=== PATIENT | female | born 1995 | race Caucasian/White ===

== ENCOUNTER 2021-11-08 15:57 | Inpatient (IN) | payer OTHER, SELFPAY ==
--- NOTE | 2021-11-08 | ECG_ITS ---
Test Reason : med clearance Blood Pressure : / mmHG Vent. Rate : 073 BPM Atrial Rate : 073 BPM P-R Int : 140 ms QRS Dur : 076 ms QT Int : 390 ms P-R-T Axes : 072 094 058 degrees QTc Int : 429 ms Normal sinus rhythm Rightward axis Nonspecific ST abnormality Borderline ECG No previous ECGs available Referred By: Angelita Monahan Electronically Signed By:WENDY TIAN
[2021-11-08 16:15] VITALS: BP 115/64; PULSE 97; RESP 15; TEMP 36.7; O2SAT 98
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
[2021-11-08 21:43] VITALS: BP 100/63; PULSE 99; TEMP 36.6; O2SAT 99
[2021-11-08] MEDS: OLANZapine ODT 10 MG TAB.RAPDIS TRANSLINGU (21:45)
[2021-11-08] MEDS: traZODone HCL 50 MG TABLET PO (21:45)
[2021-11-08] MEDS: hydrOXYzine HCL 50 MG TABLET PO (21:45)
[2021-11-09 09:17] LABS: Estimated Average Glucose 94 mg/dL; Hemoglobin A1c % 4.9 %
[2021-11-09 09:32] LABS: Alanine Aminotransferase 27 U/L (0-31); Albumin Level 4.5 g/dL (3.5-5.0); Alkaline Phosphatase 70 U/L (39-117); Anion Gap 12 (12-20); Aspartate Amino Transferase 22 U/L (5-31); Bilirubin Total 0.3 mg/dL (0.0-1.0); Blood Urea Nitrogen 21 mg/dL (9-16); Carbon Dioxide 29 mmol/L (22-29); Chloride 105 mmol/L (96-108); Cholesterol 157 mg/dL; Estimated Glomerular Filt Rate > 60; Glucose Fasting 87 mg/dL (60-99); HDL Cholesterol 39 mg/dL; LDL Cholesterol Calculated 103 mg/dl; Potassium 4.6 mmol/L (3.3-5.1); Sodium 141 mmol/L (135-145); Total Protein 7.3 g/dL (6.5-8.0); Triglycerides 78 mg/dL
[2021-11-09 09:54] LABS: Thyroid Stimulating Hormone 1.28 uIU/mL (0.32-4.0)
[2021-11-09 10:19] LABS: Folate 17.6 ng/mL (> or = 4.0); Vitamin B12 507 pg/mL (200-900)
[2021-11-09] MEDS: carBAMazepine ER 200 MG TAB.ER.12H 400 MG PO ×2 (11:06→20:52)
[2021-11-09] MEDS: QUEtiapine Fumarate 50 MG TABLET PO ×2 (11:06→12:46)
[2021-11-09] MEDS: Escitalopram Oxalate 10 MG TABLET PO (11:24)
[2021-11-09] MEDS: LORazepam 1 MG TABLET 2 MG PO (12:54)
--- NOTE | 2021-11-09 12:55 | PC.NURSE ---
Maintenance staff went to patient's room to fix her door. Reportedly, the maintenance staff went to the patient's room, saw that the patient was in there, and said she's not supposed to be in here. Maintenance staff tried to clarify with M3 staff about whether pt needed to leave her room, but the only M3 staff nearby was a PC who was already with a 1:1 patient. Pt became very agitated and started yelling/screaming. She started throwing her hands at maintenance staff, swearing at him, and pushed her hand against his face. Staff had attempted to redirect her. Pt said don't talk to me like that you racist piece of shit and tried lunging at him multiple times. Staff eventually was able to redirect pt to sit down in the kitchen area. This RN asked if she wanted some medication to help her relax and patient agreed. Pt willingly took Seroquel 50mg and Ativan 2mg PO at 1246. Pt was visibly calmer and was watching TV in the kitchen area, eventually fell asleep.
--- NOTE | 2021-11-09 13:29 | P.PNPSI_ITS ---
Subjective Subjective Date of Service: 11/09/21 Reason For Visit: bipolar 1 disorder other specified trauma Interim History: pt found lying in bed, awake. came to interview room. quiet at first, but once started talking became pressured and agitated. impatient and unreasonable. conversation focused on medications, as pt stated her medications were not correct and was upset about it. agreed to restart tegretol and start seroquel in place of risperidone. she reports having taken her brother's seroquel once and having had a good result. will use seroquel instead of trazodone as well, for sleep. educated pt regarding the use of SSRIs in persons with bipolar disorder, and that unopposed use is not recommended but that as long as she continued to take tegretol, her taking citalopram (or lexapro here) would be OK. pt expressed agreement with this plan for now. per staff, no notable events or behaviors overnight other than general irritability and refusal to cooperative with admissions assessments. Mental Status Exam Mental Status Exam Narrative: appropriately dressed and adequately groomed. very thin. cooperative with interview. PMA of frequent repositioning, moving forward and backward in her seat as she expressed her irritation. speech pressured. thoughts digressive and largely logical with some extreme positions being taken. affect constricted, hyper-intense, labile. mood irritable. no SI/HI/AVH expressed. Diagnostics Vital Signs (24Hr): Vital Signs - 24 hr 11/08/21 16:15 11/08/21 21:43 Temperature 98.0 F 97.8 F Pulse Rate 97 99 Respiratory Rate 15 Blood Pressure 115/64 100/63 Pulse Oximetry 98 99 Labs Results: 11/09/21 08:42 Labs: Laboratory Results - last 48 hr 11/09/21 11/09/21 11/09/21 08:42 08:42 08:42 Sodium 141 Potassium 4.6 Chloride 105 Carbon Dioxide 29 Anion Gap 12 BUN 21 H Creatinine 0.76 Estim Creat Clear Calc TNP Estimated GFR > 60 Fasting Glucose 87 Estimat Average Glucose 94 Hemoglobin A1c % 4.9 Calcium 10.0 Total Bilirubin 0.3 AST 22 ALT 27 Alkaline Phosphatase 70 Total Protein 7.3 Albumin 4.5 Triglycerides 78 Cholesterol 157 LDL Cholesterol, Calc 103 HDL Cholesterol 39 Vitamin B12 507 Folate 17.6 TSH 1.28 Medications Medications Current Medications Acetaminophen (Acetaminophen 325 Mg Tablet) 650 mg PO Q6H PRN PRN Reason: Headache/Pain Mild Scale (1-3) Al Hydroxide/Mg Hydroxide (Magnesium Hydrox/Alum Hydrox 30 Ml Oral.Susp) 30 ml PO Q6H PRN PRN Reason: Heartburn/Nausea Carbamazepine (Carbamazepine Er 200 Mg Tab.Er.12h) 400 mg PO BID [facility] Last Admin: 11/09/21 11:06 Dose: 400 mg Documented by: Escitalopram Oxalate (Escitalopram Oxalate 10 Mg Tablet) 10 mg PO DAILY [facility] Last Admin: 11/09/21 11:24 Dose: 10 mg Documented by: Hydroxyzine HCl (Hydroxyzine Hcl 50 Mg Tablet) 50 mg PO Q6H PRN PRN Reason: Anxiety Last Admin: 11/08/21 21:45 Dose: 50 mg Documented by: Magnesium Hydroxide (Milk Of Magnesia 30 Ml Oral.Susp) 30 ml PO DAILY PRN PRN Reason: Constipation Nicotine (Nicotine 21 Mg Patch.Td24) 21 mg TRANSDERMA DAILY PRN PRN Reason: nicotine cravings Quetiapine Fumarate (Quetiapine Fumarate 50 Mg Tablet) 50 mg PO Q4H PRN PRN Reason: agitation Last Admin: 11/09/21 12:46 Dose: 50 mg Documented by: Quetiapine Fumarate (Quetiapine Fumarate 100 Mg Tablet) 100 mg PO BEDTIME [facility] Quetiapine Fumarate (Quetiapine Fumarate 100 Mg Tablet) 100 mg PO BEDTIME PRN PRN Reason: insomnia Allergies Allergies Allergy/AdvReac Type Severity Reaction Status Date / Time cefepime Allergy Unknown Unknown Verified 11/08/21 16:23 Assessment & Plan Assessment & Plan (1) Bipolar I disorder: Status: Acute Code(s): F31.9 - Bipolar disorder, unspecified (2) Seizure disorder: Status: Acute Code(s): G40.909 - Epilepsy, unspecified, not intractable, without status epilepticus Plan Bipolar Disorder, Seizure Disorder 1) Bipolar Disorder - restart tegretol XR 400 mg PO BID. seroquel PRNs for agitation or insomnia. 2) Sz D/O - tegretol. 3) Dispo - pending inpt stabilization. I spent ___35___ minutes with the patient and/or on the patient floor today, greater than?50% of which was spent counseling/coordinating care. Reason for contiued inpatient stay Substantial Risk for: harm to self, harm to others, inability to function and rapid decompensation
--- NOTE | 2021-11-09 13:50 | HO.HSGERICON ---
History of Present Illness Data of Consult Service Date: 11/09/21 Primary Care Provider: Unknown Physician HPI Reason for consult: h and p 26F admitted To inpatient psychiatry for homicidal ideation. Patient denies any medical history. Denies any chest pain, shortness of breath, fever, chills. Review of Systems Review of Systems: Yes all other systems are reviewed and are negative [facility] Medical History Chronic migraine without aura Low grade glioma of thalamus Family History Mother Fibromyalgia Social History Household Members: Family Housing: House Do you presently have visiting nurse or other home services: No Unable to assess alcohol history related to: Refusing to respond Patient Tobacco Use Status: Never used Tobacco Use of substances other than those prescribed or required for medical reasons: Refusing to respond Substance Use Type: Marijuana Spiritual Healthcare Practices: Patient refused to respond. Christianity Healthcare Practices: Patient refused to respond. Cultural Healthcare Practices: Patient refused to respond. Advance Directives: No Advance Directives Information Provided: No Advance Directives on File: No Do you have thoughts of harming others: None Do you have a plan to hurt others: No Plan Recently lost weight without trying: Unsure How much weight loss: Unsure Nutrition Risks: No Nutritional Risk Patient : No : No Poor oral hygiene: No service: No Sexual orientation: Don't Know Meds Allergies Allergy/AdvReac Type Severity Reaction Status Date / Time cefepime Allergy Unknown Unknown Verified 11/08/21 16:23 Active Medications: Current Medications Acetaminophen (Acetaminophen 325 Mg Tablet) 650 mg PO Q6H PRN PRN Reason: Headache/Pain Mild Scale (1-3) Al Hydroxide/Mg Hydroxide (Magnesium Hydrox/Alum Hydrox 30 Ml Oral.Susp) 30 ml PO Q6H PRN PRN Reason: Heartburn/Nausea Carbamazepine (Carbamazepine Er 200 Mg Tab.Er.12h) 400 mg PO BID [facility] Last Admin: 11/09/21 11:06 Dose: 400 mg Documented by: Escitalopram Oxalate (Escitalopram Oxalate 10 Mg Tablet) 10 mg PO DAILY [facility] Last Admin: 11/09/21 11:24 Dose: 10 mg Documented by: Hydroxyzine HCl (Hydroxyzine Hcl 50 Mg Tablet) 50 mg PO Q6H PRN PRN Reason: Anxiety Last Admin: 11/08/21 21:45 Dose: 50 mg Documented by: Magnesium Hydroxide (Milk Of Magnesia 30 Ml Oral.Susp) 30 ml PO DAILY PRN PRN Reason: Constipation Nicotine (Nicotine 21 Mg Patch.Td24) 21 mg TRANSDERMA DAILY PRN PRN Reason: nicotine cravings Quetiapine Fumarate (Quetiapine Fumarate 50 Mg Tablet) 50 mg PO Q4H PRN PRN Reason: agitation Last Admin: 11/09/21 12:46 Dose: 50 mg Documented by: Quetiapine Fumarate (Quetiapine Fumarate 100 Mg Tablet) 100 mg PO BEDTIME [facility] Quetiapine Fumarate (Quetiapine Fumarate 100 Mg Tablet) 100 mg PO BEDTIME PRN PRN Reason: insomnia Home Medications Medication Instructions Recorded Confirmed Last Taken Type benztropine 0.5 mg tablet 0.5 mg PO BID 11/08/21 11/08/21 Unknown History cholecalciferol (vitamin D3) 25 25 mcg PO DAILY 11/08/21 11/08/21 Unknown History mcg (1,000 unit) tablet (Vitamin D3) hydroxyzine pamoate 50 mg capsule 50 mg PO Q6H PRN 11/08/21 11/08/21 Unknown History lorazepam 0.5 mg tablet 0.5 mg PO BID PRN 11/08/21 11/08/21 Unknown History multivitamin with minerals 11/08/21 Unknown History risperidone 1 mg tablet 1 mg PO BID 11/08/21 11/08/21 Unknown History sertraline 50 mg tablet 50 mg PO DAILY 11/08/21 11/08/21 Unknown History thiamine HCl (vitamin B1) 100 mg 100 mg PO DAILY 11/08/21 11/08/21 Unknown History tablet (Vitamin B-1) trazodone 50 mg tablet 50 mg PO BEDTIME PRN 11/08/21 11/08/21 Unknown History Results Labs CBC and Chem 7: 11/09/21 08:42 Labs: Laboratory Results - last 24 hr 11/09/21 11/09/21 11/09/21 08:42 08:42 08:42 Anion Gap 12 Estim Creat Clear Calc TNP Estimated GFR > 60 Fasting Glucose 87 Estimat Average Glucose 94 Hemoglobin A1c % 4.9 Calcium 10.0 Total Bilirubin 0.3 AST 22 ALT 27 Alkaline Phosphatase 70 Total Protein 7.3 Albumin 4.5 Triglycerides 78 Cholesterol 157 LDL Cholesterol, Calc 103 HDL Cholesterol 39 Vitamin B12 507 Folate 17.6 TSH 1.28 Assessment and Plan (1) Bipolar I disorder: Status: Acute Plan 26F Admitted to inpatient psychiatry Denies any active medical issues Please recall as needed Physical Exam Vital Signs: Last Vital Signs Temp 97.8 F 11/08/21 21:43 Pulse 99 11/08/21 21:43 Resp 15 11/08/21 16:15 BP 100/63 11/08/21 21:43 Pulse Ox 99 11/08/21 21:43 General: AO X 3, no acute distress Resp: CTA bilateral, no accessory muscles used CVS: S1,S2,RRR GI: soft, non tender, non distended Neuro: motor grossly intact, alert Psych: appropriate affect, appropriate insight Neuro Cranial nerves: Yes CN's II-XII intact bilaterally
[2021-11-09 20:10] VITALS: BP 86/52; PULSE 78; RESP 18; TEMP 36.4; O2SAT 97
[2021-11-09] MEDS: QUEtiapine Fumarate 100 MG TABLET PO (20:52)
[2021-11-10 08:33] VITALS: BP 106/56; PULSE 88; RESP 16; TEMP 36.8; O2SAT 98
[2021-11-10] MEDS: carBAMazepine ER 200 MG TAB.ER.12H 400 MG PO ×2 (08:51→21:05)
[2021-11-10] MEDS: Escitalopram Oxalate 10 MG TABLET PO (08:51)
[2021-11-10] MEDS: QUEtiapine Fumarate 50 MG TABLET PO (08:55)
--- NOTE | 2021-11-10 10:59 | PC.NURSE ---
Patient resting comfortably in bed c/o being anxious was given PRN seroquel with morning meds with good effect. Patient is resting comfortably in bed at this time, ate breakfast this am, will continue to monitor.
[2021-11-10] MEDS: hydrOXYzine HCL 50 MG TABLET PO (19:01)
--- NOTE | 2021-11-10 19:32 | HO.PSYCHPN ---
Subjective Subjective Date of Service: 11/10/21 Reason For Visit: bipolar 1 disorder other specified trauma Interim History: pt reports the meds are helping her, making her sleepy. she doesn't mind bcses she hasn't been sleeping much recently, so she feels it is a good thing. some conflict with staff working on door latch in her room as they were not expected, but she feels she is better now. per staff, decreased anxiety. altercation with staff last night, as they entered her room without announcing. got seroquel 50 PRN. med-compliant. pleasant today. Mental Status Exam Mental Status Exam Narrative: appropriately dressed and adequately groomed. very thin. cooperative with interview. no PMA/PMR. speech nml rate, amount, loudness, latency.. thoughts linear and logical. affect constricted, normo-intense, non-labile. no SI/HI/AVH expressed. Diagnostics Vital Signs (24Hr): Vital Signs - 24 hr 11/09/21 20:10 11/10/21 08:33 Temperature 97.6 F 98.3 F Pulse Rate 78 88 Respiratory Rate 18 16 Blood Pressure 86/52 L 106/56 L Pulse Oximetry 97 98 Labs Results: 11/09/21 08:42 Labs: Laboratory Results - last 48 hr 11/09/21 11/09/21 11/09/21 08:42 08:42 08:42 Sodium 141 Potassium 4.6 Chloride 105 Carbon Dioxide 29 Anion Gap 12 BUN 21 H Creatinine 0.76 Estim Creat Clear Calc TNP Estimated GFR > 60 Fasting Glucose 87 Estimat Average Glucose 94 Hemoglobin A1c % 4.9 Calcium 10.0 Total Bilirubin 0.3 AST 22 ALT 27 Alkaline Phosphatase 70 Total Protein 7.3 Albumin 4.5 Triglycerides 78 Cholesterol 157 LDL Cholesterol, Calc 103 HDL Cholesterol 39 Vitamin B12 507 Folate 17.6 TSH 1.28 Medications Medications Current Medications Acetaminophen (Acetaminophen 325 Mg Tablet) 650 mg PO Q6H PRN PRN Reason: Headache/Pain Mild Scale (1-3) Al Hydroxide/Mg Hydroxide (Magnesium Hydrox/Alum Hydrox 30 Ml Oral.Susp) 30 ml PO Q6H PRN PRN Reason: Heartburn/Nausea Carbamazepine (Carbamazepine Er 200 Mg Tab.Er.12h) 400 mg PO BID [facility] Last Admin: 11/10/21 08:51 Dose: 400 mg Documented by: Escitalopram Oxalate (Escitalopram Oxalate 10 Mg Tablet) 10 mg PO DAILY [facility] Last Admin: 11/10/21 08:51 Dose: 10 mg Documented by: Hydroxyzine HCl (Hydroxyzine Hcl 50 Mg Tablet) 50 mg PO Q6H PRN PRN Reason: Anxiety Last Admin: 11/10/21 19:01 Dose: 50 mg Documented by: Magnesium Hydroxide (Milk Of Magnesia 30 Ml Oral.Susp) 30 ml PO DAILY PRN PRN Reason: Constipation Nicotine (Nicotine 21 Mg Patch.Td24) 21 mg TRANSDERMA DAILY PRN PRN Reason: nicotine cravings Quetiapine Fumarate (Quetiapine Fumarate 50 Mg Tablet) 50 mg PO Q4H PRN PRN Reason: agitation Last Admin: 11/10/21 08:55 Dose: 50 mg Documented by: Quetiapine Fumarate (Quetiapine Fumarate 100 Mg Tablet) 100 mg PO BEDTIME [facility] Last Admin: 11/09/21 20:52 Dose: 100 mg Documented by: Quetiapine Fumarate (Quetiapine Fumarate 100 Mg Tablet) 100 mg PO BEDTIME PRN PRN Reason: insomnia Allergies Allergies Allergy/AdvReac Type Severity Reaction Status Date / Time cefepime Allergy Unknown Unknown Verified 11/08/21 16:23 Assessment & Plan Assessment & Plan (1) Bipolar I disorder: Status: Acute Code(s): F31.9 - Bipolar disorder, unspecified (2) Seizure disorder: Status: Acute Code(s): G40.909 - Epilepsy, unspecified, not intractable, without status epilepticus Plan Bipolar Disorder, Seizure Disorder 1) Bipolar Disorder - restarted tegretol XR 400 mg PO BID.? seroquel PRNs for agitation or insomnia. 2) Sz D/O - tegretol. 3) Dispo - pending inpt stabilization. I spent ___20___ minutes with the patient and/or on the patient floor today, greater than?50% of which was spent counseling/coordinating care. Reason for contiued inpatient stay Substantial Risk for: harm to self, inability to function and rapid decompensation
[2021-11-10 20:40] VITALS: BP 105/73; PULSE 100; RESP 18; TEMP 36.3; O2SAT 96
[2021-11-10] MEDS: QUEtiapine Fumarate 100 MG TABLET PO (21:06)
[2021-11-11 09:00] VITALS: BP 112/69; PULSE 120; RESP 16; TEMP 36.3; O2SAT 97
[2021-11-11] MEDS: Escitalopram Oxalate 10 MG TABLET PO (09:49)
[2021-11-11] MEDS: carBAMazepine ER 200 MG TAB.ER.12H 400 MG PO ×2 (09:49→20:36)
[2021-11-11] MEDS: QUEtiapine Fumarate 50 MG TABLET PO (14:31)
--- NOTE | 2021-11-11 17:21 | P.PNPSI_ITS ---
Subjective Subjective Date of Service: 11/11/21 Reason For Visit: bipolar 1 disorder other specified trauma Interim History: pt calm, cooperative. states she is feeling pretty good, but a little depressed. not sure where she will be able to discharge to as she does not feel comfortable returning to her mother's house. pt will discuss with SW tomorrow. per staff, alert, oriented, pleasant, cooperative, slept well. good ADLs. use of profanity with RN at night when getting HS meds. Mental Status Exam Mental Status Exam Narrative: appropriately dressed and adequately groomed. very thin. cooperative with interview. no PMA/PMR. speech nml rate, amount, loudness, latency. thoughts linear and logical. affect constricted, normo-intense, non-labile. no SI/HI/AVH expressed. Diagnostics Vital Signs (24Hr): Vital Signs - 24 hr 11/10/21 20:40 11/11/21 09:00 Temperature 97.4 F 97.4 F Pulse Rate 100 120 H Respiratory Rate 18 16 Blood Pressure 105/73 112/69 Pulse Oximetry 96 97 Labs Results: 11/09/21 08:42 Medications Medications Current Medications Acetaminophen (Acetaminophen 325 Mg Tablet) 650 mg PO Q6H PRN PRN Reason: Headache/Pain Mild Scale (1-3) Al Hydroxide/Mg Hydroxide (Magnesium Hydrox/Alum Hydrox 30 Ml Oral.Susp) 30 ml PO Q6H PRN PRN Reason: Heartburn/Nausea Carbamazepine (Carbamazepine Er 200 Mg Tab.Er.12h) 400 mg PO BID [facility] Last Admin: 11/11/21 09:49 Dose: 400 mg Documented by: Escitalopram Oxalate (Escitalopram Oxalate 10 Mg Tablet) 10 mg PO DAILY [facility] Last Admin: 11/11/21 09:49 Dose: 10 mg Documented by: Hydroxyzine HCl (Hydroxyzine Hcl 50 Mg Tablet) 50 mg PO Q6H PRN PRN Reason: Anxiety Last Admin: 11/10/21 19:01 Dose: 50 mg Documented by: Magnesium Hydroxide (Milk Of Magnesia 30 Ml Oral.Susp) 30 ml PO DAILY PRN PRN Reason: Constipation Nicotine (Nicotine 21 Mg Patch.Td24) 21 mg TRANSDERMA DAILY PRN PRN Reason: nicotine cravings Quetiapine Fumarate (Quetiapine Fumarate 50 Mg Tablet) 50 mg PO Q4H PRN PRN Reason: agitation Last Admin: 11/11/21 14:31 Dose: 50 mg Documented by: Quetiapine Fumarate (Quetiapine Fumarate 100 Mg Tablet) 100 mg PO BEDTIME SONIA Last Admin: 11/10/21 21:06 Dose: 100 mg Documented by: Quetiapine Fumarate (Quetiapine Fumarate 100 Mg Tablet) 100 mg PO BEDTIME PRN PRN Reason: insomnia Allergies Allergies Allergy/AdvReac Type Severity Reaction Status Date / Time cefepime Allergy Unknown Unknown Verified 11/08/21 16:23 Assessment & Plan Assessment & Plan (1) Bipolar I disorder: Status: Acute Code(s): F31.9 - Bipolar disorder, unspecified (2) Seizure disorder: Status: Acute Code(s): G40.909 - Epilepsy, unspecified, not intractable, without status epilepticus Plan Bipolar Disorder, Seizure Disorder 1) Bipolar Disorder - restarted tegretol XR 400 mg PO BID.? seroquel PRNs for agitation or insomnia. 2) Sz D/O - tegretol. 3) Dispo - pending inpt stabilization. I spent ____15__ minutes with the patient and/or on the patient floor today, greater than?50% of which was spent counseling/coordinating care. Reason for contiued inpatient stay Substantial Risk for: harm to self, harm to others, inability to function and rapid decompensation
[2021-11-11 20:30] VITALS: BP 109/66; PULSE 100; RESP 16; TEMP 36.6; O2SAT 97
[2021-11-11] MEDS: QUEtiapine Fumarate 100 MG TABLET PO (20:36)
[2021-11-11 23:52] LABS: COVID-19 Test Negative (Negative)
[2021-11-12] MEDS: Escitalopram Oxalate 10 MG TABLET PO (09:05)
[2021-11-12] MEDS: carBAMazepine ER 200 MG TAB.ER.12H 400 MG PO ×2 (09:05→21:09)
[2021-11-12 09:09] VITALS: BP 104/70; PULSE 102; RESP 17; TEMP 36.8; O2SAT 99
--- NOTE | 2021-11-12 14:14 | HO.PSYCHPN ---
Subjective Subjective Date of Service: 11/12/21 Reason For Visit: bipolar 1 disorder other specified trauma Interim History: pt seen in her room, on contact precautions. she continues calm and cooperative. still feeling relatively well and planning for discharge soon, but dispo options are of large concern. broaches issue with cell phone yesterday, she acknowledges and takes responsibility for her behavior. she says she was looking into aftercare; redirected her to work through on that, to which she agreed. per staff, uncooperative during use of her cell phone, got seroquel 50 mg PRN once yesterday. Mental Status Exam Mental Status Exam Narrative: appropriately dressed and adequately groomed. very thin. cooperative with interview. no PMA/PMR. speech nml rate, amount, loudness, latency. thoughts linear and logical. affect constricted, normo-intense, non-labile. no SI/HI/AVH expressed. Diagnostics Vital Signs (24Hr): Vital Signs - 24 hr 11/11/21 20:30 11/12/21 09:09 Temperature 97.8 F 98.2 F Pulse Rate 100 102 H Respiratory Rate 16 17 Blood Pressure 109/66 104/70 Pulse Oximetry 97 99 Labs Results: 11/09/21 08:42 Labs: Laboratory Results - last 48 hr 11/11/21 22:57 COVID-19 ([facility]) Negative COVID-19 Clin Com See Note Medications Medications Current Medications Acetaminophen (Acetaminophen 325 Mg Tablet) 650 mg PO Q6H PRN PRN Reason: Headache/Pain Mild Scale (1-3) Al Hydroxide/Mg Hydroxide (Magnesium Hydrox/Alum Hydrox 30 Ml Oral.Susp) 30 ml PO Q6H PRN PRN Reason: Heartburn/Nausea Carbamazepine (Carbamazepine Er 200 Mg Tab.Er.12h) 400 mg PO BID [facility] Last Admin: 11/12/21 09:05 Dose: 400 mg Documented by: Escitalopram Oxalate (Escitalopram Oxalate 10 Mg Tablet) 10 mg PO DAILY [facility] Last Admin: 11/12/21 09:05 Dose: 10 mg Documented by: Hydroxyzine HCl (Hydroxyzine Hcl 50 Mg Tablet) 50 mg PO Q6H PRN PRN Reason: Anxiety Last Admin: 11/10/21 19:01 Dose: 50 mg Documented by: Magnesium Hydroxide (Milk Of Magnesia 30 Ml Oral.Susp) 30 ml PO DAILY PRN PRN Reason: Constipation Nicotine (Nicotine 21 Mg Patch.Td24) 21 mg TRANSDERMA DAILY PRN PRN Reason: nicotine cravings Quetiapine Fumarate (Quetiapine Fumarate 50 Mg Tablet) 50 mg PO Q4H PRN PRN Reason: agitation Last Admin: 11/11/21 14:31 Dose: 50 mg Documented by: Quetiapine Fumarate (Quetiapine Fumarate 100 Mg Tablet) 100 mg PO BEDTIME SONIA Last Admin: 11/11/21 20:36 Dose: 100 mg Documented by: Quetiapine Fumarate (Quetiapine Fumarate 100 Mg Tablet) 100 mg PO BEDTIME PRN PRN Reason: insomnia Allergies Allergies Allergy/AdvReac Type Severity Reaction Status Date / Time cefepime Allergy Unknown Unknown Verified 11/08/21 16:23 Assessment & Plan Assessment & Plan (1) Bipolar I disorder: Status: Acute Code(s): F31.9 - Bipolar disorder, unspecified (2) Post traumatic stress disorder (PTSD): Status: Acute Code(s): F43.10 - Post-traumatic stress disorder, unspecified Plan Bipolar Disorder, Seizure Disorder 1) Bipolar Disorder - restarted tegretol XR 400 mg PO BID.? seroquel PRNs for agitation or insomnia. 2) Sz D/O - tegretol. 3) Dispo - pending adequate dispo plan I spent ___20___ minutes with the patient and/or on the patient floor today, greater than?50% of which was spent counseling/coordinating care. Reason for contiued inpatient stay Substantial Risk for: harm to self, harm to others, inability to function and rapid decompensation
[2021-11-12 21:00] VITALS: BP 118/62; PULSE 86; RESP 18; TEMP 36.6; O2SAT 96
[2021-11-12] MEDS: QUEtiapine Fumarate 100 MG TABLET PO (21:09)
[2021-11-13] MEDS: Escitalopram Oxalate 10 MG TABLET PO (09:08)
[2021-11-13] MEDS: carBAMazepine ER 200 MG TAB.ER.12H 400 MG PO ×2 (09:08→21:47)
[2021-11-13 09:18] VITALS: BP 117/76; PULSE 86; RESP 17; TEMP 36.7; O2SAT 99
--- NOTE | 2021-11-13 13:40 | HO.PSYCHPN ---
Subjective Subjective Date of Service: 11/13/21 Reason For Visit: bipolar 1 disorder other specified trauma Interim History: pt found in her room. MD wearing contact precautions. no complaints or requests. agrees she is doing reasonably well and planning for discharge tomorrow. will he return to mother's house for the near term. per staff, eating. no complaints. cooperative. COVID precautions in place. med-compliant. denying Sx. D/C tomorrow. Mental Status Exam Mental Status Exam Narrative: appropriately dressed and adequately groomed. very thin. cooperative with interview. no PMA/PMR. speech nml rate, amount, loudness, latency. thoughts linear and logical. affect constricted, normo-intense, non-labile. no SI/HI/AVH expressed. Diagnostics Vital Signs (24Hr): Vital Signs - 24 hr 11/12/21 21:00 11/13/21 09:18 Temperature 97.8 F 98.0 F Pulse Rate 86 86 Respiratory Rate 18 17 Blood Pressure 118/62 117/76 Pulse Oximetry 96 99 Labs Results: 11/09/21 08:42 Labs: Laboratory Results - last 48 hr 11/11/21 22:57 COVID-19 ([facility]) Negative COVID-19 Clin Com See Note Medications Medications Current Medications Acetaminophen (Acetaminophen 325 Mg Tablet) 650 mg PO Q6H PRN PRN Reason: Headache/Pain Mild Scale (1-3) Al Hydroxide/Mg Hydroxide (Magnesium Hydrox/Alum Hydrox 30 Ml Oral.Susp) 30 ml PO Q6H PRN PRN Reason: Heartburn/Nausea Carbamazepine (Carbamazepine Er 200 Mg Tab.Er.12h) 400 mg PO BID [facility] Last Admin: 11/13/21 09:08 Dose: 400 mg Documented by: Escitalopram Oxalate (Escitalopram Oxalate 10 Mg Tablet) 10 mg PO DAILY [facility] Last Admin: 11/13/21 09:08 Dose: 10 mg Documented by: Hydroxyzine HCl (Hydroxyzine Hcl 50 Mg Tablet) 50 mg PO Q6H PRN PRN Reason: Anxiety Last Admin: 11/10/21 19:01 Dose: 50 mg Documented by: Magnesium Hydroxide (Milk Of Magnesia 30 Ml Oral.Susp) 30 ml PO DAILY PRN PRN Reason: Constipation Nicotine (Nicotine 21 Mg Patch.Td24) 21 mg TRANSDERMA DAILY PRN PRN Reason: nicotine cravings Quetiapine Fumarate (Quetiapine Fumarate 50 Mg Tablet) 50 mg PO Q4H PRN PRN Reason: agitation Last Admin: 11/11/21 14:31 Dose: 50 mg Documented by: Quetiapine Fumarate (Quetiapine Fumarate 100 Mg Tablet) 100 mg PO BEDTIME SONIA Last Admin: 11/12/21 21:09 Dose: 100 mg Documented by: Quetiapine Fumarate (Quetiapine Fumarate 100 Mg Tablet) 100 mg PO BEDTIME PRN PRN Reason: insomnia Allergies Allergies Allergy/AdvReac Type Severity Reaction Status Date / Time cefepime Allergy Unknown Unknown Verified 11/08/21 16:23 Assessment & Plan Assessment & Plan (1) Bipolar I disorder: Status: Acute Code(s): F31.9 - Bipolar disorder, unspecified (2) Post traumatic stress disorder (PTSD): Status: Acute Code(s): F43.10 - Post-traumatic stress disorder, unspecified Plan Bipolar Disorder, Seizure Disorder 1) Bipolar Disorder - restarted tegretol XR 400 mg PO BID.? seroquel PRNs for agitation or insomnia. 2) Sz D/O - tegretol. 3) Dispo - DC tomorrow. check labs. I spent ___25___ minutes with the patient and/or on the patient floor today, greater than?50% of which was spent counseling/coordinating care. Reason for contiued inpatient stay Substantial Risk for: harm to self, harm to others, inability to function and rapid decompensation
[2021-11-13 20:20] VITALS: BP 110/76; PULSE 84; RESP 18; TEMP 36.7; O2SAT 97
[2021-11-13] MEDS: QUEtiapine Fumarate 100 MG TABLET PO (21:47)
[2021-11-14] MEDS: carBAMazepine ER 200 MG TAB.ER.12H 400 MG PO (09:45)
[2021-11-14] MEDS: Escitalopram Oxalate 10 MG TABLET PO (09:45)
[2021-11-14 10:05] LABS: MANUAL DIFF FLAG NO
[2021-11-14 10:10] LABS: Basophils Absolute Auto 0.1 X10*3/uL (0.0-0.2); Basophils Percent Auto 0.5 % (0-2); Eosinophils Absolute Auto 0.1 X10*3/uL (0.0-0.4); Eosinophils Percent Auto 0.9 % (0-4); Hematocrit 39.3 % (37.0-47.0); Hemoglobin 13.7 g/dl (12.0-16.0); Imm Gran Abs Auto 0.02 X10*3/uL (0.00-0.03); Imm Gran Pct Auto 0.2 % (0.0-0.4); Lymphocytes Absolute Auto 2.9 X10*3/uL (1.2-4.9); Lymphocytes Percent Auto 30.5 % (20-40); Mean Corpuscular HGB Conc 34.9 g/dl (31.0-35.0); Mean Corpuscular Hemoglobin 34.2 pg (27.0-33.0); Mean Platelet Volume 8.8 fL (9.4-12.3); Monocytes Absolute Auto 0.5 X10*3/uL (0.1-1.2); Monocytes Percent Auto 5.2 % (2-11); Neutrophils Absolute Auto 5.9 x10*3/uL (2.0-8.3); Neutrophils Percent Auto 62.7 % (45-73); Platelet Count 419 X10*3/uL (160-400); Red Blood Count 4.01 X10*6/uL (4.20-5.50); Red Cell Distribution Width 11.9 % (11.0-16.0); White Blood Count 9.3 X10*3/uL (4.8-10.8)
[2021-11-14 10:51] LABS: Estimated Average Glucose 94 mg/dL; Hemoglobin A1c % 4.9 %
[2021-11-14 11:18] LABS: Carbamazepine Tegretol 8.1 mcg/mL (5.0-12.0)
[2021-11-14 11:38] LABS: Alanine Aminotransferase 23 U/L (0-31); Albumin Level 4.4 g/dL (3.5-5.0); Alkaline Phosphatase 79 U/L (39-117); Anion Gap 14 (12-20); Aspartate Amino Transferase 23 U/L (5-31); Bilirubin Direct < 0.2 mg/dL (0.0-0.5); Bilirubin Total 0.3 mg/dL (0.0-1.0); Blood Urea Nitrogen 14 mg/dL (9-16); Calcium 9.8 mg/dL (8.4-10.2); Carbon Dioxide 26 mmol/L (22-29); Chloride 105 mmol/L (96-108); Estimated Glomerular Filt Rate > 60; Glucose Random 104 mg/dL (60-115); Potassium 4.6 mmol/L (3.3-5.1); Sodium 140 mmol/L (135-145); Total Protein 7.2 g/dL (6.5-8.0)
--- NOTE | 2021-11-14 13:45 | PC.NURSE ---
Patient is alert, fully oriented, pleasant and cooperative with discharge process. She denies ideation, plan or intent to harm self or others. She denies perceptual disturbance. She verbalizes understanding of discharge medications and upcoming appointments. She denies physical complaint. She verbalizes understanding of appropriate COVID precautions.
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
== END 2021-11-14 13:25 | disposition home or self-care (01) | DRG 753 ==
PROVIDERS: Social Worker; Admitting Provider Psychiatry & Neurology Psychiatry; Visit Provider Psychiatry & Neurology Psychiatry
DX: F31.9 Bipolar disorder, unspecified (principal); R45.851 Suicidal ideations; G40.909 Epilepsy, unspecified, not intractable, without status epilepticus; F43.10 Post-traumatic stress disorder, unspecified; Z91.14 Patient's other noncompliance with medication regimen; Z20.822 Contact with and (suspected) exposure to COVID-19; Z79.899 Other long term (current) drug therapy
CPT/HCPCS: 36415; 80048; 80053; 80061; 80076; 80156; 82607; 82746; 83036; 84443; 85025; 87635; 93005

== ENCOUNTER 2022-06-25 18:52 | Outpatient (REF) | payer OTHER, SELFPAY ==
--- NOTE | ~2022-06-25 | MR_ITS ---
EXAMINATION: MR BRAIN WITHOUT AND WITH CONTRAST CLINICAL INFORMATION: 27-year-old with complex partial seizure disorder. History of surgery for oligodendroglioma. COMPARISON: 11/10/2018 outside MRI TECHNIQUE: Multiplanar, multisequence MRI of the brain was obtained before and after the intravenous administration of 6 mL Gadavist. FINDINGS: DWI sequence demonstrates no restricted diffusion to suggest acute or subacute cerebral ischemia. Redemonstrated is evidence of a previous right frontal craniotomy, with associated foci of susceptibility-weighted signal loss subjacent to the craniotomy site similar to the previous exam. 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 Redemonstrated are a few nodular foci of mild T2 prolongation along the deep inferomedial aspect of the resection cavity, which is not significantly changed from the previous exam. There is a small curvilinear focus of enhancement associated with the larger of these 2 which is seen on the previous exam and is likely intravascular. A tiny nodular focus of enhancement associated with the more medially located nodular focus is less prominent on the current study. A previously noted punctate focus of enhancement with the more laterally located nodular focus is less evident on current exam. The remainder the brain is normal in morphology and signal intensity without any other mass lesions or pathologic intracranial enhancement, space-occupying process or mass effect. The remainder of the ventricular system and subarachnoid spaces are within normal limits without hydrocephalus. Midline structures are intact. Normal signal voids are seen in the visualized major intracranial vessels. 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 MR/MR head/brain wo/w con IMPRESSION: No significant change in the appearance of the resection cavity in the right frontal lobe and stable appearance to adjacent parenchymal gliosis and nodularity at the margins. Small foci of nodular enhancement and appear less prominent on current study. Continued follow-up recommended at a clinically appropriate interval.
== END 2022-06-25 18:53 | disposition home or self-care (01) ==
LOC: HO.MRI 18:52
PROVIDERS: Visit Provider Psychiatry & Neurology Neurology
DX: G40.209 Localization-related (focal) (partial) symptomatic epilepsy and epileptic syndromes with complex partial seizures, not intractable, without status epilepticus (principal)
CPT/HCPCS: 70553

== ENCOUNTER 2025-05-09 10:42 | Outpatient (REF) | payer OTHER, SELFPAY ==
--- NOTE | 2025-05-09 10:49 | ECG_ITS ---
Test Reason : usp risk med Blood Pressure : */* mmHG Vent. Rate : 92 BPM Atrial Rate : 92 BPM P-R Int : 146 ms QRS Dur : 74 ms QT Int : 354 ms P-R-T Axes : 31 92 27 degrees QTcB Int : 437 ms Normal sinus rhythm Rightward axis Borderline ECG When compared with ECG of 09-Nov-2021 09:45, T wave amplitude has decreased in Anterior leads Referred By: Supriya Colón Electronically Signed By: WENDY TIAN
--- OUTSIDE RECORDS SUMMARY | 2025-05-09 12:13 | XMS_ITS | Clinical Summary ---
Author Organization [place] [address] [address] [facility] Building Address [facility] [place] [address] Phone Care Team Providers Care Fire Support Man Name Role Phone Denis Renteria MD Primary Care Provider [phone] Allergies Active Allergy Reactions Criticality Noted Date Comments Cefepime Hives,Wheezing 09/06/2013 Medications divalproex (DEPAKOTE ER) 250 mg 24 hr tablet Take 3 tablets (750 mg total) by mouth. 01/14/2024 Active benztropine (COGENTIN) 1 mg tablet Take 1 tablet (1 mg total) by mouth at bedtime. 01/14/2024 Active haloperidoL (HALDOL) 10 mg tablet Take 1 tablet (10 mg total) by mouth 1 (one) time each day. 01/20/2024 Active levETIRAcetam (KEPPRA) 1,000 mg tablet Take 1 tablet (1,000 mg total) by mouth 2 (two) times a day. 08/21/2023 Active melatonin 10 mg capsule TAKE 1 CAPSULE BY MOUTH EVERYDAY AT BEDTIME *OTC NC BY INS* 01/14/2024 Active propranoloL (INDERAL) 10 mg tablet Take 1 tablet (10 mg total) by mouth 2 (two) times a day. 01/14/2024 Active traZODone (DESYREL) 100 mg tablet Take 1 tablet (100 mg total) by mouth at bedtime. 01/14/2024 Active escitalopram (LEXAPRO) 10 mg tablet Take 1 tablet (10 mg total) by mouth. 08/01/2023 Active QUEtiapine (SEROquel) 100 mg tablet Take by mouth. Active Active Problems Problem Noted Date Diagnosed Date Anxiety 05/05/2024 Brain tumor (benign) ([facility] V24, [facility] V28) 05/05/2024 Overview (05/05/2024): Has had 2 surgeries and is stable; oligodendroglioma low grade, initial dx 1999 Follows with oncologist in [place], every year Cervicogenic headache 05/05/2024 Chronic migraine without aura 05/05/2024 Underweight 05/05/2024 Schizoaffective disorder ([facility] V24, [facility] V 28) 01/30/2024 Brief psychotic disorder ([facility] V24, [facility] V 28) 12/13/2021 Marijuana use 12/13/2021 PTSD (post-traumatic stress disorder) 12/13/2021 Migraine without aura and wi thout status migrainosus, not intractable 07/17/2016 Seizure disorder ([facility], [facility] V28) 04/11 Overview (05/05/2024): Neurology (01/30/18) sees: Seen by Dr. hernández. Continue seizure medications without change. Blood work ordered. 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 Last imaging performed February [address] Collins in oncology. Encounters Date Type Department Care Team Description 04/22/2025 Billing Patient Not Present [facility] [address] [facility] [place] [place] [phone] Denis Renteria MD Schizoaffective disorder, unspecified type ([facility], [facility] V28) (Primary Dx); Panic disorder (episodic paroxysmal anxiety); Post-traumatic stress disorder, chronic 04/21/2025 Billing Patient Not Present [facility] [address] [facility] [place] [address] Denis Renteria MD Schizoaffective disorder, unspecified type ([facility] V[facility], [facility] V28) (Primary Dx); Episodic paroxysmal anxiety disorder; Post-traumatic stress disorder, chronic; Nonintractable epilepsy with status epilepticus, unspecified epilepsy type ([facility] V24, [facility] V28) 04/08/2025 Telephone Internal Medicine - [address] [place] [id number] Denis Renteria MD 04/05/2025 Telephone Internal Medicine - [address] [place] [address] Denis Renteria MD from Last 3 Months Immunizations Immunization Administration Dates Next Due DTaP (Infanrix) 6wks to less than 7yo ,08/15/1995,10/09/1994,08/15,1993 HPV, Quadrivalent 06/15/2014, 4,11/12/2010,01/16,11/15/2008 Hep B, Unspecified 10/09/1994,1993, 993 Hepatitis B (Zilrtna-I-Vzvue , Recombivax HB-Adult) 19yo and older 05/13/2023 Influenza trivalent, with pr eservative (Fluzone; Afluria) 6mo and older 07/12/2021,08/19/2016,06/22/2015,08/16,11/19/2011,09/05/2010 Influenza, Unspecified 06/19/2009 MMR, measles mumps and rubel la Live (Priorix; M-M-R II) 12mo and older 08/15/1998,09/11/1995 Meningococcal Polysaccharide 11/15/2008 PPD Test 03/03/2018,12/19/2016 Pneumococcal polysaccharide 23 valent (Pneumovax 23) 2yo and older 11/12/2010 Tb Skin Test 03/30/2021 Td, Unspecified 03/06/2005 Tdap Tetanus diptheria acell ular pertussis (Boostrix; Adacel) 7yo and older 12/23/2024,10/20/2013,11/15/2008 Varicella live (Varivax) 12m o and older 05/07/2006,09/22/2000 Surgical History Surgery Date Site/Laterality Comments OTHER SURGICAL HISTORY PROCEDURE: ID CRNEC EXC BRAIN TUMOR INFRATENTORIAL/POST FOSSA; COMMENT: Age 4 and 6; Still some remaining which is stable Medical History Medical History Date Comments Brain tumor (CMS/HCC V24, CMS/HCC V28) DX:Brain tumor (HCC); COMMENT: Has had 2 surgeries, s/p chemo; stable Anxiety DX:Anxiety Seizure (CMS/HCC V24, CMS/HCC V28) DX:Seizure (HCC) Migraine without aura and wi thout status migrainosus, not intractable 07/17/2016 DX:Migraine withou t aura and without status migrainosus, not intractable Family History Medical History Relation Name Comments No Known Problems Father Schizophrenia Grandparent Cataracts Maternal Grandmother Hypertension Mother Other: fibromyalgia Mother Other: Pysch Mother's side uncles's bipol ar & anxiety Breast cancer Other great maternal grandmother Relation Name Status Comments Brother Alive Father Alive Grandparent Maternal Grandmother Mother Alive Mother's side Other Sister Alive Social History Tobacco Use Types Packs/Day Years Used Date Smoking Tobacco: Light Smoker Smokeless Tobacco: Never Tobacco Cessation:Ready to Q uit: Not Asked; Counseling Given: Not Answered Alcohol Use Standard Drinks/Week Comments No 0 (1 standard drink = 0.6 oz pur e alcohol) Comments No Sex and Gender Information Value Date Recorded Sex Assigned at Not on file Legal Sex Female 4:36 AM EST Gender Identity Not on file Sexual Orientation Not on file Obstetrics History Last Filed Vital Signs Vital Sign Reading Time Taken Comments Blood Pressure 94/58 12/23/2024 1:19 PM EDT Pulse 67 12/23/2024 1:19 PM EDT Temperature - - Respiratory Rate 16 12/23/2024 1:19 PM EDT Oxygen Saturation - - Inhaled Oxygen Concentration - - Weight 70.3 kg (155 lb) 12/23/2024 1:19 PM EDT Height 160 cm (5' 3 ) 01/30/2024 10:31 AM EDT Body Mass Index 27.46 01/30/2024 10:31 AM EDT Plan of Treatment Health Maintenance Due Date Last Done Comments Pneumococcal Vaccine: Pediatrics (0 to 5 Years) and At-Risk Patients (6 to 49 Years) (2 of 2 - PCV) 11/13/2011 11/12/2010 Cervical Cancer Screening: Pap Smear 05/06/2017 05/06/2014, 05/06/2014 Hepatitis C Screening 07/14/2022 Social Influencers of Health Screening 07/14/2022 Depression Screening 08/11/2024 01/30/2024 COVID-19 Vaccine (3 - season) 2025 04/07/2021, 03/10/2021 Influenza Vaccine (#1) 2025 , 07/12/2021, 08/19/2016, Additional history exists Cholesterol Screening (Lipid Panel) 12/23/2029 12/23/2024, 03/30/2021 DTaP,Tdap,and Td Vaccines (10 - Td or Tdap) 12/23/2034 12/23/2024, 10/20/2013, 11/15/2008, Additional history exists MMR Vaccines Completed 08/15/1998, 09/11/1995 Varicella Vaccines Completed 05/07/2006, 09/22/2000 Meningococcal ACWY Vaccine Aged Out 11/15/2008 N o longer eligible based on patient's age to complete this topic HIV Screening Completed 06/06/2014 HPV Vaccines Completed 06/15/2014, 04/11, 11/12/2010, Additional history exists Hepatitis B Vaccines Completed 05/13/2023, 10/09/1994, 1993, Additional history exists HIB Vaccines Aged Out No longer eligi ble based on patient's age to complete this topic Hepatitis A Vaccines Aged Out No long er eligible based on patient's age to complete this topic IPV Vaccines Aged Out No longer eligi ble based on patient's age to complete this topic Meningococcal B Vaccine Aged Out No l onger eligible based on patient's age to complete this topic RSV Immunization Patients Under 20 months Aged Out No longer eligible based on patient's age to complete this topic Procedures Procedure Name Priority Date/Time Associated Diagnosis Comments LIPID PANEL WITH REFLEX TO DIRECT LDL Routine 12/23/2024 1:58 PM EDT Schizoaffective disorder, unspecified type (CMS/HCC V24, CMS/HCC V28) DEPRESSION SCREENING Routine 01/30/2024 HIV SCREENING Routine 06/06/2014 HPV Routine 05/06/2014 from Last 3 Months or Most Recently Relevant to Health Maintenance Results * (ABNORMAL) Lipid panel with reflex to direct LDL (12/23/2024 1:58 PM EDT) Pathologist [facility] Cholesterol 262(H) 0 - 200 mg/dL LAB CHEMISTRY METHOD 12/24/2024 9:55 AM EDT [facility] Triglycerides 292(H) 0 - 150 mg/dL LAB CHEMISTRY METHOD 12/24/2024 9:55 AM EDT [facility] HDL 36(L) >=40 mg/dL LAB [facility]STR[facility] LDL Calculated 168(H) 0 - 100 mg/dL LAB CHE[facility]STRY METHOD [facility] VLDL Cholesterol Dave 58.4 mg/dL LAB CHEMISTRY METHOD 12/24/2024 9:55 AM EDT [facility] Non HDL Chol. (LDL+VLDL) 226(H) <145 mg/dL LAB CHEMISTRY METHOD 12/24/2024 9:55 AM EDT [facility] Chol/HDL Ratio 7.3(H) 0.0 - 4.4 LAB CHEMISTRY METHOD 12/24/2024 9:55 AM [facility] Blood Venous blood specimen / Unknown Venipuncture / Unknown 12/23/2024 1:58 PM EDT 12/23/2024 1:58 PM EDT Christophe ANGUIANO LAB BLOOD ORDERABLES Fi nal Result [facility] [address] [place] [address], [place] [phone] * Depression Screening (01/30/2024) [facility] Depression Screening abstracted us Historical Provider HEALTH MAINTENANCE Final Result * HIV Screening (06/06/2014) HIV Screening abstracted us Historical Provider HEALTH MAINTENANCE Final Result * Cervical Cancer Screening: HPV (05/06/2014) Cervical Cancer Screening: HPV no interpretation , abstracted Historical Provider HEALTH MAINTENANCE Final Result from Last 3 Months or Most Recently Relevant to Health Maintenance Insurance [facility] [employer] Care Teams Fire Support Man Relationship Specialty Start Date End Date Denis Renteria MD [address] [place] [phone] PCP - General Internal Medicine 07/01/24
--- OUTSIDE RECORDS SUMMARY | 2025-05-09 12:13 | XMS_ITS ---
Author Name [facility] Organization Unknown Care Team Organization Name Specialty Phone Email Start Date End Da luisa [facility] Denis Renteria Primary Care 06/18/20222023
[2025-05-09 12:35] LABS: Anion Gap 13 (12-20); Blood Urea Nitrogen 10 mg/dL (9-16); Calcium 9.6 mg/dL (8.4-10.2); Carbon Dioxide 24 mmol/L (22-29); Chloride 106 mmol/L (96-108); Cholesterol 214 mg/dL (<200); Estimated Glomerular Filt Rate > 60; HDL Cholesterol 34 mg/dL (>40); Potassium 4.1 mmol/L (3.3-5.1); Sodium 139 mmol/L (135-145); Triglycerides 228 mg/dL (<150)
[2025-05-09 12:41] LABS: Thyroid Stimulating Hormone 6.59 uIU/mL (0.32-4.0)
== END 2025-05-09 10:43 | disposition home or self-care (01) ==
LOC: HO.LAB 10:42
PROVIDERS: PCP Internal Medicine; Visit Provider Psychiatry & Neurology Psychiatry
DX: F31.2 Bipolar disorder, current episode manic severe with psychotic features (principal); F43.10 Post-traumatic stress disorder, unspecified; Z79.899 Other long term (current) drug therapy
CPT/HCPCS: 36415; 80048; 80061; 84443; 93005

== ENCOUNTER → 2025-05-09 10:49 | Outpatient (BNV) | payer OTHER, SELFPAY | PROVIDERS: PCP Internal Medicine; Visit Provider Internal Medicine | DX: Z13.6 Encounter for screening for cardiovascular disorders (principal) | CPT/HCPCS: 93010 ==